=== PATIENT | male | born 1960 | race Caucasian/White ===

== ENCOUNTER → 2020-12-01 | Outpatient (CLI) | payer BC ==
[~2020-12-01] MED LIST: ASPIRIN CHEWABL81 MG PO; BETHANECHOL CHL50 MG PO; CRESTOR5 MG PO; FLOMAX0.4 MG PO; MICROZIDE12.5 MG PO; PRILOSEC OTC20 MG PO; REVATIO 20 MG T20 MG PO; TYLENOL 500 MG500 MG PO; ULTRAM50 MG PO
== END ==
LOC: EXRD 12:55
DX: I73.9 Peripheral vascular disease, unspecified (principal)
CPT/HCPCS: 93922; 93925

== ENCOUNTER → 2021-03-29 | Outpatient (CLI) | payer BC | LOC: KOH-I 08:08 | DX: R07.82 Intercostal pain (principal); W10.8XXA Fall (on) (from) other stairs and steps, initial encounter; S22.32XA Fracture of one rib, left side, initial encounter for closed fracture | CPT/HCPCS: 71045; 71101; 73030 ==

== ENCOUNTER → 2021-12-19 | Outpatient (CLI) | payer OTHER | LOC: KOH-I 10:42 | DX: M25.561 Pain in right knee (principal); M25.562 Pain in left knee | CPT/HCPCS: 73562 ==

== ENCOUNTER → 2022-03-15 | Outpatient (CLI) | payer OTHER | LOC: KOH-I 14:28 | DX: G25.0 Essential tremor (principal) | CPT/HCPCS: 70450 ==